=== PATIENT | male | born 1990 | race Caucasian/White ===

== ENCOUNTER 2021-05-21 19:32 | Emergency (ER) | payer OTHER, SELFPAY ==
[2021-05-21 20:03] VITALS: BP 109/83; PULSE 100; RESP 16; TEMP 37.4; O2SAT 98; BMI 38.0
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
[2021-05-21] MEDS: naproxen 500 mg Tablet PO (20:52)
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
== END 2021-05-21 21:43 | disposition home or self-care (01) ==
PROVIDERS: Emergency Provider Emergency Medicine
DX: S80.12XA Contusion of left lower leg, initial encounter (principal); V86.56XA Driver of dirt bike or motor/cross bike injured in nontraffic accident, initial encounter
CPT/HCPCS: 73590; 99283